=== PATIENT | female | born 1990 | race Caucasian/White ===

== ENCOUNTER → 2023-03-22 | Outpatient (CLI) | payer BC ==
--- NOTE | 2023-03-22 17:17 | Diagnostic Imaging Report ---
INDICATION: Pain. EXAMINATION: Cervical spine 03/22/2023 FINDINGS: 6 views of the cervical spine. There is normal height and alignment of the vertebral bodies. The C7-T1 level is not well visualized. Intervertebral spaces preserved. No fractures or subluxations. Prevertebral soft tissues are remarkable. There is a slight levoconvex curvature of the cervical thoracic spine which could be positional or due to muscle spasm correlate clinically. IMPRESSION: 1. No acute fractures or subluxations with the slight curvature as detailed above. Dictated by: Dictated on workstation # [id number]
== END ==
LOC: RAD 16:56
PROVIDERS: ATTEND Chiropractor
DX: M54.2 Cervicalgia (principal); G44.219 Episodic tension-type headache, not intractable
CPT/HCPCS: 72050